=== PATIENT | female | born 1985 | race Caucasian/White ===

== ENCOUNTER → 2016-05-04 | Outpatient (CLI) | payer BC | LOC: LAB 08:37 | PROVIDERS: ATTEND Obstetrics & Gynecology Reproductive Endocrinology | DX: Z32.00 Encounter for pregnancy test, result unknown (principal) | CPT/HCPCS: 36415; 84702 ==

== ENCOUNTER → 2016-05-06 | Outpatient (CLI) | payer BC | LOC: LAB 08:39 | PROVIDERS: ATTEND Obstetrics & Gynecology Reproductive Endocrinology | DX: Z32.01 Encounter for pregnancy test, result positive (principal) | CPT/HCPCS: 36415; 84443; 84702 ==

== ENCOUNTER → 2016-05-09 | Outpatient (CLI) | payer BC | LOC: LAB 08:18 | PROVIDERS: ATTEND Obstetrics & Gynecology Reproductive Endocrinology | DX: O26.21 Pregnancy care for patient with recurrent pregnancy loss, first trimester (principal) | CPT/HCPCS: 36415; 84702 ==

== ENCOUNTER → 2016-05-11 | Outpatient (CLI) | payer BC | LOC: LAB 08:52 | PROVIDERS: ATTEND Obstetrics & Gynecology Reproductive Endocrinology | DX: Z32.01 Encounter for pregnancy test, result positive (principal) | CPT/HCPCS: 36415; 84702 ==

== ENCOUNTER → 2016-05-17 | Outpatient (CLI) | payer BC ==
[~2016-05-17] MED LIST: ACET-789 PO; ALPR0.5T PO; BSP10T; BUPR150T9 PO; IBP800T PO; SULF-228 PO; TRAZ100T92 PO
== END ==
LOC: LAB 13:08
PROVIDERS: ATTEND Obstetrics & Gynecology Reproductive Endocrinology
DX: O02.81 Inappropriate change in quantitative human chorionic gonadotropin (hCG) in early pregnancy (principal)
CPT/HCPCS: 36415; 84702

== ENCOUNTER → 2016-05-20 | Outpatient (CLI) | payer BC | LOC: LAB 09:41 | PROVIDERS: ATTEND Obstetrics & Gynecology Reproductive Endocrinology | DX: O02.1 Missed abortion (principal) | CPT/HCPCS: 36415; 84702 ==

== ENCOUNTER → 2016-06-02 | Outpatient (CLI) | payer BC | LOC: LAB 09:50 | PROVIDERS: ATTEND Obstetrics & Gynecology Reproductive Endocrinology | DX: O02.1 Missed abortion (principal) | CPT/HCPCS: 36415; 84702 ==